=== PATIENT | female | born 1985 | race Caucasian/White ===

== ENCOUNTER 2025-03-16 11:53 | Emergency (ER) | payer BC, MEDICAID ==
[2025-03-16] MEDS ORDERED: Sodium Chloride 0.9% 10 ML Syringe FLUSH PRN (12:35)
[2025-03-16 12:57] LABS: BASOPHILS ABSOLUTE AUTO 0.1 K/mm3 (0.0-0.2); BASOPHILS PERCENT AUTO 1.0 % (0.0-1.0); EOSINOPHILS ABSOLUTE AUTO 0.5 K/mm3 (0.0-0.4); EOSINOPHILS PERCENT AUTO 6.8 % (0.0-6.0); IMMATURE GRAN ABSOLUTE AUTO 0.02 K/mm3 (0.00-0.05); IMMATURE GRAN PERCENT AUTO 0.3 % (0.0-0.4); LYMPHOCYTES ABSOLUTE AUTO 2.0 K/mm3 (1.0-4.8); LYMPHOCYTES PERCENT AUTO 24.8 % (24.0-44.0); MEAN PLATELET VOLUME 8.8 fl (9.4-12.3); MONOCYTES ABSOLUTE AUTO 0.6 K/mm3 (0.0-0.8); MONOCYTES PERCENT AUTO 7.1 % (0.0-8.0); NEUTROPHILS ABSOLUTE AUTO 4.7 K/mm3 (1.8-7.7); NEUTROPHILS PERCENT AUTO 60.0 % (41.0-71.0); NRBC ABSOLUTE 0.00 (0.00-0.02); NRBC PERCENT 0.0 % (0.0-0.2); PLATELET COUNT,PLT 359 K/mm3 (150-400); RED BLOOD CELL COUNT 4.68 M/mm3 (4.10-5.30); WHITE BLOOD CELL COUNT,WBC 7.89 K/mm3 (3.9-11.3)
[2025-03-16] MEDS: Sodium Chloride 0.9% 10 ML Syringe FLUSH PRN (12:58)
[2025-03-16] MEDS: Iopamidol 755 Mg/ML 100 ML Bottle IVPUSH ONE (12:58)
[2025-03-16] MEDS: Ketorolac 30 MG/ML SDV IVPUSH ONE (13:08)
[2025-03-16] MEDS: diphenhydrAMINE 50 MG/ML SDV IVPUSH ONE (13:08)
[2025-03-16 13:21] LABS: A/G RATIO 1.3 (1-2); ALANINE AMINOTRANSFERASE,ALT 24 U/L (14-59); ASPARTATE AMNIOTRANSFERASE,AST 15 U/L (15-37); BILIRUBIN TOTAL 0.4 mg/dL (0.2-1.0); BLOOD UREA NITROGEN,BUN 9 mg/dL (7-18); CARBON DIOXIDE,CO2 28 mEq/L (21-32); CHLORIDE,CL 105 mEq/L (98-107); CREATININE 0.7 mg/dL (0.55-1.02); EST CRCL DRUG DOSING (CG) 111.00 mL/min; ESTIMATED GFR 114 mL/min (>60); GLUCOSE RANDOM 82 mg/dL (70-99); POTASSIUM,K 3.9 mEq/L (3.5-5.1); PROTEIN TOTAL,TP 7.2 g/dl (6.4-8.2); SODIUM,NA 140 mEq/L (136-145)
[2025-03-16 13:23] LABS: TROPONIN I HIGH SENSITIVITY < 4 pg/mL (<=51)
== END 2025-03-16 14:10 | disposition home or self-care (01) ==
LOC: JD.ED 11:53
DX: R51.9 Headache, unspecified (principal); E86.0 Dehydration; Z86.16 Personal history of COVID-19; Z90.710 Acquired absence of both cervix and uterus; Z88.0 Allergy status to penicillin; Z88.2 Allergy status to sulfonamides; Z79.899 Other long term (current) drug therapy
CPT/HCPCS: 36415; 70450; 70450-26; 70496; 70496-26; 70498; 70498-26; 71045; 71045-26; 80053; 83735; 84484; 85025; 93005; 93010; 96361; 96374; 96375; 99284; 99284-25; J1200; J1885; J2765; J7030; Q9967